=== PATIENT | female | born 1990 | race Two or more races ===

== ENCOUNTER 2019-08-12 02:31 | Inpatient (IN) | payer OTHER ==
[2019-08-12] VITALS (10 sets, daily range): BP systolic 122–146; BP diastolic 65–88
[~2019-08-12] VITALS: Ht 154.9 cm; Wt 77.4 kg
[2019-08-12 04:11] LABS: HEMATOCRIT 41.6 % (36.0-47.0); HEMOGLOBIN 14.2 g/dl (12.0-15.5); MEAN CORPUSCULAR HEMOGLOBIN 31.5 pg (27.0-33.0); MEAN CORPUSCULAR HGB CONC 34.1 g/dl (32.0-36.5); MEAN CORPUSCULAR VOLUME 92.2 fl (80.0-96.0); PLATELET COUNT, AUTOMATED 255 10^3/uL (150-450); RED BLOOD COUNT 4.51 10^6/uL (4.00-5.40); WHITE BLOOD COUNT 9.9 10^3/uL (4.0-10.0)
[2019-08-12] MEDS ORDERED: LACTATED RINGER'S 1000 ML IV STA (05:31)
--- NOTE | 2019-08-12 05:51 | HPEPDOC ---
Obstetrical History & Physical General Date of Admission Aug 12, 2019 at 03:17 History of Present Illness 29 yo at 40+1 weeks gestation by LMP of [id number] c/w 1st trimester US presented to L&D with the complaint of regular, painful contractions. She endorses some vaginal discharge but no gushing fluid or bleeding. She endorses excellent movement. is uncomplicated. 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 ABDOMEN: Gravid and non-tender to touch. FETUS: Is vertex (VTX) by sterile vaginal examination (SVE) EXTREMITIES: No edema. Laboratory Data 24H LABS Laboratory Tests 2 08/12/19 03:24: Serology Scanned Report Hepatitis B Testing 08/12/19 04:06: Nucleated Red Blood Cells % (auto) 0.0 CBC/BMP Laboratory Tests 08/12/19 04:06 Urine Culture: No Growth Pertinent Laboratoy Data Blood Type: O+ RBC Antibody Screen: Negative HIV: Negative Hepatitis B: Negative Hepatitis C: Unknown Rapid Plasma Reagin: Nonreactive Rubella: Immune Varicella: Immune Chlamydia/Gonorrhea: Negative Group B Streptococcus: Negative Quad Screen Test: Negative Cystic Fibrosis: Unknown Glucose Tolerance Test: 124 Anatomy Ultrasound Placenta Location: Posterior Normal Anatomy: Yes Placenta Previa: No Vaginal Examination Dilation: 5 cm Effacement: 80% Station: -1 Cervical Consistency: Soft Cervical Position: Middle Presentation: Cephalic presentation Position: Vertex (occiput) Assessment Heart Rate (FHR): 135 Variability: Moderate Accelerations: Positive Decelerations: Variable (Initial variable decels resolved after IV hydration) Tocometer Contractions: Yes Frequency: regular Duration: greater than 60 seconds Strength: palpated as strong Assessment/Plan Assessment 29 yo at 40+1 weeks gestation presented to L&D in labor. Uncomplicated . Plan Admit to L&D for expectant management of labor. Will augment as clinically indicated. Apply IV fluids. GBS negative. Clear liquid diet. Patient may have epidural if desired. Anticipate . DO COLIN Nelson CHRISTOPHER J. DO Aug 12, 2019 05:51
[2019-08-12] MEDS ORDERED: OXYTOCIN 30 UNITS IN 0.9% NaCl 500ML IV BAG (J2590) As Ordered ONE (06:44)
[2019-08-12] MEDS ORDERED: DIBUCAINE 1% OINTMENT 30GM TOP PRN (07:15)
[2019-08-12] MEDS ORDERED: RHOGAM 300 MCG (1500 IU) INJ (J2790) IM SCH (07:15)
[2019-08-12] MEDS ORDERED: OXYTOCIN DRIP 30 UNITS in IV 1 EA IV SCH (07:15)
[2019-08-12] MEDS ORDERED: IBUPROFEN 600 MG TAB PO PRN (07:15)
[2019-08-12] MEDS ORDERED: PROMETHAZINE 25 MG TAB PO PRN (07:15)
[2019-08-12] MEDS ORDERED: DOCUSATE SODIUM 100 MG CAP PO PRN (07:15)
[2019-08-12] MEDS ORDERED: MEASLES,MUMPS,RUBELLA VACCINE INJ (MMR-II) (90707) SC SCH (07:15)
--- NOTE | 2019-08-12 07:23 | DNPDOC ---
[facility] Delivery Note Delivery Note DATE OF DELIVERY: [id number] at ~0700 PREDELIVERY DIAGNOSIS: 40+1 weeks gestation and active labor POST DELIVERY DIAGNOSIS: Delivered. PROCEDURE: Spontaneous vaginal delivery CHARGE OPERATOR: Dr. Jesus ANESTHESIA: Epidural ESTIMATED BLOOD LOSS: 300 mL. FINDINGS: Viable male , 9lbs 2oz (4130 grams), tight double nuchal cord, Apgars 8/9 DELIVERY SUMMARY: Presented to room as Rosa felt a strong urge to push. Fetus at +2 station. AROM performed productive of meconium stained fluid. The bed was broken down and she was prepped for delivery. She began pushing and with excellent effort her delivered after only about 10 minutes. presentation was RICHI with restitution to ROT. There was a tight, double nuchal cord that was delivered through and reduced manually. The left anterior shoulder delivered with gentle traction followed easily by the remainder of the body. The was dried and stimulated on the field and a bulb suction was used. The was then placed on the maternal abdomen and cried vigorously. The three vessel cord was then clamped and cut by the FOB after appropriate time delay and under my direction. Third stage was then completed with gentle trac tion on the cord and it was productive of an intact placenta. The uterine fundus was firmed with massage and pitocin was administered via IV bolus. Inspection of the vagina, perineum, labia, and cervix revealed a a right sublabial laceration. This was repaired in the usual fashion with 4-0 vicryl suture. There was excellent cosmesis and hemostasis after the repair. The fundus was palpated again and was firm. Sponge, instrument, and needle counts were correct X2. Mother and infant stable when I left the room. DO COLIN Nelson CHRISTOPHER J. DO Aug 12, 2019 07:23
[2019-08-12] MEDS: ACETAMINOPHEN 500 MG TAB PO PRN (07:32)
[2019-08-12] MEDS: IBUPROFEN 800 MG TAB PO PRN ×2 (10:11→17:47)
[2019-08-12] MEDS: PRENATAL VITAMINS CHEWABLE TABLET PO SCH (10:12)
[2019-08-12] MEDS: ACETAMINOPHEN TAB 650MG DOSE (2X325MG) PO PRN ×2 (12:54→22:19)
[2019-08-13 06:00] VITALS: BP 125/59
--- NOTE | 2019-08-13 07:22 | IPNPDOC ---
Progress Note Date of Service: Aug 13, 2019 Day#: 1 Progress Note PPD 1 SUBJECT: Rosa is a 29yo [id number] s/p uncomplicated on 08/12 after presenting in active labor, doing well day # 1. She has been ambulating, voiding spontaneously without issue and tolerating regular diet. Breast feeding without issue. Reports lochia is like a normal period. No f/c/n/v/CP/SOB. OBJECTIVE: VITAL SIGNS: Within normal limits, afebrile. Alert and oriented times three. Abdomen: Fundus firm at U-2. Soft, NTTP. Extremities: no pain with palpation of calves ASSESSMENT: Rosa is a 29yo [id number] s/p uncomplicated on 08/12 after presenting in active labor, doing well day # 1. Vitals within normal limits, afebrile, hemodynamically stable with no evidence of infection. PLAN: 1. Discharge to home today. 2. Tylenol and Motrin for pain. 3. Encourage breast feeding and ambulation. 4. Routine PP visit in 6 weeks in clinic. 5. Discussed return precautions at length. 6. Vaginal rest [address] Tessa Guzman MD VS, I&O, 24H, Fishbone Vital Signs/I&O Vital Signs Date Time Temp Pulse Resp B/P (MAP) Pulse Ox O2 Delivery O2 Flow Rate FiO2 08/13/19 06:00 98.6 75 16 125/59 (81) 98 Room Air I&O- Last 24 Hours up to 6 AM 08/13/19 06:00 Intake Total 120 ml Output Total 800 ml Balance -680 ml Tessa Guzman MD Aug 13, 2019 07:17
[2019-08-13] MEDS ORDERED: DIBU10OI TOP (07:25)
[2019-08-13] MEDS ORDERED: IBUP80TA PO (07:25)
[2019-08-13] MEDS ORDERED: ACET-683 PO (07:25)
--- NOTE | 2019-08-13 07:31 | DS.PDOC ---
Discharge Summary General Date of Admission Aug 12, 2019 at 03:17 Date of Discharge Aug 13, 2019 Discharge Summary PROCEDURES PERFORMED DURING STAY: spontaneous vaginal delivery ADMITTING DIAGNOSES: 1. active labor at term DISCHARGE DIAGNOSES: 1. active labor at term, delivered COMPLICATIONS/CHIEF COMPLAINT: Contractions Every 4-5 Mins Apart. HISTORY OF PRESENT ILLNESS/HOSPITAL COURSE: Rosa is a 29yo [id number] s/p uncomplicated on 08/12 after presenting in active labor, doing well day # 1. She had a benign course and at time of discharge her vitals were within normal limits, she was afebrile, hemodynamically stable with no evidence of infection. DISCHARGE MEDICATIONS: Please see below. ALLERGIES: Please see below. PHYSICAL EXAMINATION ON DISCHARGE: VITAL SIGNS: Within normal limits, afebrile. Alert and oriented times three. Abdomen: Fundus firm at U-2. Soft, NTTP. Extremities: no pain with palpation of calves LABORATORY DATA: Please see below. DIET: regular DISPOSITION: home DISCHARGE INSTRUCTIONS/PLAN: 1. Discharge to home today. 2. Tylenol and Motrin for pain. 3. Encourage breast feeding and ambulation. 4. Routine PP visit in 6 weeks in clinic. 5. Discussed return precautions at length. 6. Vaginal rest 6 weeks DISCHARGE CONDITION: Stable TIME SPENT ON DISCHARGE: Greater than [address] Tessa Guzman MD Vital Signs/I&Os Vital Signs Date Time Temp Pulse Resp B/P (MAP) Pulse Ox O2 Delivery O2 Flow Rate FiO2 08/13/19 06:00 98.6 75 16 125/59 (81) 98 Room Air I&O- Last 24 Hours up to 6 AM 08/13/19 06:00 Intake Total 120 ml Output Total 800 ml Balance -680 ml Discharge Medications Scheduled PRN Acetaminophen (Acetaminophen) 500 Mg Tablet, 1,000 MG PO Q6HP PRN for PAIN LEVEL 6-10 Dibucaine (Dibucaine) 28 Gm Oint...g., 0 DOSE TOP Q4HP PRN for PAIN Ibuprofen (Ibuprofen) 800 Mg Tablet, 800 MG PO Q8HP PRN for PAIN LEVEL 6-10 Allergies Coded Allergies: Sulfa (Sulfonamide Antibiotics) (Verified Allergy, Mild, 08/12/19) Tessa Guzman MD Aug 13, 2019 07:31
[2019-08-13] MEDS: PRENATAL VITAMINS CHEWABLE TABLET PO SCH (07:48)
[2019-08-13] MEDS: ACETAMINOPHEN 500 MG TAB PO PRN (07:48)
== END 2019-08-13 11:50 | disposition home or self-care (01) | DRG 807 ==
LOC: M LDO 02:31 → M LDI 03:17 → M OBS 14:49
PROVIDERS: ADMIT Obstetrics & Gynecology; ATTEND Obstetrics & Gynecology
PROC: 10E0XZZ Delivery of Products of Conception, External Approach (ICD-10-PCS; principal; 2019-08-12)
PROC: 0HQ9XZZ Repair Perineum Skin, External Approach (ICD-10-PCS; 2019-08-12)
DX: O48.0 Post-term pregnancy (principal); Z37.0 Single live birth; Z3A.40 40 weeks gestation of pregnancy; O69.89X0 Labor and delivery complicated by other cord complications, not applicable or unspecified; O77.0 Labor and delivery complicated by meconium in amniotic fluid; O70.0 First degree perineal laceration during delivery; Z88.2 Allergy status to sulfonamides